=== PATIENT | female | born 1970 | race Caucasian/White ===

== ENCOUNTER 2020-01-11 01:04 | Emergency (ER) | payer MEDICAID ==
[~2020-01-11] VITALS: Ht 165.1 cm; Wt 84.0 kg
[2020-01-11] MEDS ORDERED: ONDANSETRON HCL 4MG/2ML INJ IV STA (01:23)
[2020-01-11] MEDS ORDERED: SODIUM CHLORIDE 0.9% 1,000 ML IV ONE (01:30)
[2020-01-11 01:59] LABS: BASOPHILS % 0.4 % (0.0-2.0); EOSINOPHILS % 1.8 % (0.0-5.0); HEMATOCRIT. 31.8 % (36.0-48.0); HEMOGLOBIN. 10.4 g/dL (12.0-16.0); LYMPHOCYTES % 22.3 % (20.0-50.0); MEAN CORPUSCULAR HEMOGLOBIN 24.8 pg (28.0-32.0); MEAN PLATELET VOLUME 7.5 fl (7.4-10.4); MONOCYTES % 6.8 % (2.0-8.0); NEUTROPHILS % 68.7 % (40.0-76.0); PLATELET 441 x1000/uL (130-400); RED BLOOD CELL COUNT 4.18 mill/uL (4.2-5.4); RED CELL DISTRIBUTION WIDTH 16.8 % (11.6-14.6)
[2020-01-11 02:02] LABS: CHLORIDE 106 mEq/L (98-107)
[2020-01-11 02:06] LABS: ETHANOL BLOOD 201 mg/dL
[2020-01-11 08:17] VITALS: BP 107/74
== END 2020-01-11 08:23 | disposition home or self-care (01) ==
LOC: ER 01:47
DX: T51.0X1A Toxic effect of ethanol, accidental (unintentional), initial encounter (principal); Y92.89 Other specified places as the place of occurrence of the external cause; I10 Essential (primary) hypertension
CPT/HCPCS: 36415; 76705; 80053; 80320; 83690; 85025; 93005; 96361; 96374; 99285; J2405; J7030; Z7610; G0480